=== PATIENT | female | born 1970 | race Caucasian/White ===

== ENCOUNTER 2021-05-29 10:24 | Day surgery (SDC) | payer BC ==
[2021-05-28 09:36] VITALS: BMI 42.0
[2021-05-29 13:06] VITALS: TEMP 97.8
[2021-05-29 13:08] VITALS: BP 135/74; PULSE 72
== END 2021-05-29 13:24 | disposition home or self-care (01) ==
LOC: FASU-ENDO 10:24 → MERGE 12:00 → FASU-ENDO 13:24
PROVIDERS: ATTEND Internal Medicine Gastroenterology
PROC: 0DB68ZX Excision of Stomach, Via Natural or Artificial Opening Endoscopic, Diagnostic (ICD-10-PCS; 2021-05-29)
PROC: 0DB48ZX Excision of Esophagogastric Junction, Via Natural or Artificial Opening Endoscopic, Diagnostic (ICD-10-PCS; 2021-05-29)
PROC: 0DB98ZX Excision of Duodenum, Via Natural or Artificial Opening Endoscopic, Diagnostic (ICD-10-PCS; principal; 2021-05-29 12:09)
DX: K21.00 Gastro-esophageal reflux disease with esophagitis, without bleeding (principal); K29.50 Unspecified chronic gastritis without bleeding; K31.7 Polyp of stomach and duodenum; R10.9 Unspecified abdominal pain
CPT/HCPCS: 88305-TC; 88342-TC